=== PATIENT | female | born 1990 | race Caucasian/White ===

== ENCOUNTER 2019-11-10 10:13 | Emergency (ER) | payer BC ==
[~2019-11-10] VITALS: Ht 152.4 cm; Wt 74.8 kg
[2019-11-10 10:29] VITALS: BP 119/70; Ht 152.4 cm; Wt 74.8 kg
== END 2019-11-10 11:10 | disposition home or self-care (01) ==
LOC: ED 10:13
DX: B34.9 Viral infection, unspecified (principal)